=== PATIENT | male | born 1995 | race Hispanic/Latino ===

== ENCOUNTER 2019-05-31 14:20 | Emergency (ER) | payer BC ==
--- NOTE | 2019-05-31 15:24 | RAD ---
XR Ankle Lt 3 View STANDARD HISTORY: Injury, left ankle pain FINDINGS: No fracture or dislocation is identified. The ankle mortise is maintained.
== END 2019-05-31 15:35 | disposition home or self-care (01) ==
LOC: ERS 14:20
DX: S93.402A Sprain of unspecified ligament of left ankle, initial encounter (principal); F17.210 Nicotine dependence, cigarettes, uncomplicated; W10.9XXA Fall (on) (from) unspecified stairs and steps, initial encounter